=== PATIENT | male | born 2000 | race Caucasian/White ===

== ENCOUNTER 2024-08-07 04:23 | Emergency (ER) | payer BC, SELFPAY ==
[2024-08-07 04:26] VITALS: BP 148/89; PULSE 100; RESP 16; TEMP 36.8; O2SAT 99; BMI 22.7
--- NOTE | 2024-08-07 04:52 | ED.GENADULT ---
HPI - General Adult General Chief complaint: Urogenital Problems, Male Stated complaint: UTI Time Seen by Provider: 08/07/24 04:25 Source: patient Mode of arrival: ambulatory Limitations: no limitations History of Present Illness HPI narrative: 24-year-old male presents the emergency department with feeling of suprapubic pressure. He has a history of chronic urinary retention and has seen urology for this. It sounds as though he has seen 2 separate urologist. He has an upcoming appointment in September with the urologist again. It sounds like it is a follow-up from kidney ultrasounds. Patient denies prior history of urinary tract infections. Denies chance of STD. He does typically have to wear a brief because he has what sounds like overflow incontinence by his report. He frequently will get only the tiniest occurs that he has to urinate and then suddenly have a large urinary movement. Denies constipation or difficulty with stools. No fever. Is feeling a little nauseated today. It sounds very questionable that he has not been told to self cath. I get a very unclear story from him and unfortunately he is a new patient to our system I do not have any access to his outside records. He comes in in the wee hours of the morning as well. States that his past medical history is benign, no major long-term health problems. No prescription medications, no allergies. ROS is notable for the urinary symptoms plus nausea. Denies any rashes, itching on the head of the penis. Otherwise negative times 12 systems. Related Data Home Medications ?Medication ?Instructions ?Recorded ?Confirmed No Known Home Medications 08/07/24 08/07/24 Allergies Allergy/AdvReac Type Severity Reaction Status Date / Time No Known Drug Allergies Allergy Verified 08/07/24 04:31 PFSH PFS Social History Non-prescribed substance use: denies use service: No Exam Const: Vital Signs, click to edit/add: Vital Signs - 24 hr 08/07/24 04:26 Temperature 98.2 F Pulse Rate [Left P ulse Oximeter] 100 Respiratory Rate 16 Blood Pressure [Ri ght Upper Arm] 148/89 H Pulse Oximetry 99 Oxygen Delivery Me thod Room Air Documenting provider has reviewed patient's vital signs: yes Other: Anxious and guarded. Slightly odd behavior but cooperates well with exam with no signs of psychosis. HENMT: Common normals: normocephalic and oropharynx normal Head and scalp: normocephalic Eye: Common normals: conjunctivae normal General eye: normal appearance of both eyes Conjunctiva: conjunctiva(e) normal Neck & C-Spine: Common normals: full ROM and no lymphadenopathy Resp: Common normals: normal respiratory effort, no use of accessory muscles and clear to auscultation bilaterally Effort & inspection: able to speak in complete sentences Auscultation: clear to auscultation bilaterally Cardio: Common normals: regular rate, regular rhythm, S1 normal heart sound, S2 normal heart sound and no murmurs Rate: regular rate Rhythm: regular rhythm Heart sounds: S1 normal and S2 normal GI: Common normals: Normal to inspection, nondistended, normoactive bowel sounds present Other: I believe that is his bladder that I am feeling distended in the suprapubic region. Note that exam was performed after he voided in the bathroom. : Other: He declines a genital exam Extremity: Common normals: normal to inspection and normal capillary refill Psych: Attitude: calm Activity/motor behavior: appropriate eye contact; no psychomotor agitation Mood and affect: anxious Attention/concentration: attention grossly intact Memory/cognition: memory grossly intact Insight: fair Judgement: fair Skin: Common normals: no rashes or lesions noted General skin exam: no rashes or lesions noted Course Course ED Course: 24-year-old male with increased suprapubic pressure in the setting of what sounds like chronic urinary retention and overflow incontinence. Differential diagnosis including acute urinary retention, kidney stone, bladder infection, STD, amongst others. It significant concerns if he is having overflow incontinence for this amount of time that he certainly could develop worsening kidney function, hydronephrosis, further bladder damage, risk of rupture, other complications. I would find it very hard to believe that he has not told to self cath multiple times per day to help relieve his urinary retention. Will start with a urinalysis and obtain a postvoid residual estimated by bladder scan. Reevaluation(s) Time of Reevaluation #1: 05:14 Reevaluation #1: Update: Nursing reports postvoid residual of 277. The certainly above what would be expected but not in a critical value. We would need to straight cath unless he was over 400. I did talk more frankly to patient about what the recommendations have been from his urologist. He is supposed to be straight cathing. He says that he has never been able to do it at home. He often cannot pee on command he does have to sit and wait for it to dribble. He really needs to be straight cathing. I counseled him that the biggest risk to not doing this is that he is putting constant back pressure on his kidneys and this could ultimately lead to kidney failure. Catheters coming a lot of different sizes. There our physical therapists that can help train him. Starting with an even smaller catheter might be easier for him. I can tell that anxiety is a big part of his trigger. There are no signs of infection today and his urinalysis. He does not have acute urinary retention. I am recommending that he call his urologist to touch base on the next steps in getting train to self cath, potentially smaller supplies and next steps in management. Do not wait until September. We will let him know if his gonorrhea and chlamydia tests are unexpectedly positive. There are potentially medications that can be used to help with the bladder spasms but they may worsen his urinary retention. I am not comfortable prescribing these unless is under the supervision of his urologist. He has not been compliant with therapy in the past and I cannot trust that he would report appropriate follow-up if there are signs of complications. This was explained to him. He verbalizes understanding and agreement. He is welcome to use Tylenol, ibuprofen and [id number] Uristat if he finds these helpful. He verbalizes understanding and agreement. Vital Signs Vital signs: Initial Vital Signs Temperature 98.2 F 08/07/24 04:26 Temperature Source Temporal Artery Scan 08/07/24 04:26 Pulse Rate 100 08/07/24 04:26 Pulse Rhythm Regular 08/07/24 04:26 Respiratory Rate 16 08/07/24 04:26 Blood Pressure 148/89 H 08/07/24 04:26 Blood Pressure Mean 108 H 08/07/24 04:26 Blood Pressure Position Sitting 08/07/24 04:26 Pulse Oximetry 99 08/07/24 04:26 Oxygen Delivery Method Room Air 08/07/24 04:26 Vital Signs Temperature 98.2 F 08/07/24 04:26 Pulse Rate 100 08/07/24 04:26 Respiratory Rate 16 08/07/24 04:26 Blood Pressure 148/89 H 08/07/24 04:26 Pulse Oximetry 99 08/07/24 04:26 Oxygen Delivery Method Room Air 08/07/24 04:26 Temperature 98.2 F 08/07/24 04:26 Pulse Rate 100 08/07/24 04:26 Respiratory Rate 16 08/07/24 04:26 Blood Pressure 148/89 H 08/07/24 04:26 Pulse Oximetry 99 08/07/24 04:26 Oxygen Delivery Method Room Air 08/07/24 04:26 Medical Decision Making Lab Data Lab results reviewed: Yes I reviewed the patient's lab results Lab results narrative: Reassuring. No signs of bladder infection. Labs: Lab Results 08/07/24 Range/Units 04:40 Urine Color Yellow (Yellow) Urine Appearance Clear (Clear) Urine pH 6.0 (5.0-8.5) Ur Specific Maurice <= 1.005 (1.000-1.030) Urine Protein Negative (Negative) Urine Glucose (UA) Negative (Negative) Urine Ketones Negative (Negative) Urine Blood Negative (Negative) Urine Nitrite Negative (Negative) Urine Bilirubin Negative (Negative) Urine Urobilinogen 0.2 (0.2-1.0) Ur Leukocyte Esterase Negative (Negative) Urine RBC 0-2 (0-2) Urine WBC 0-2 (0-5) Ur Squamous Epith Cells None (None-Few) Urine Bacteria None (None) Discharge Plan Discharge Clinical Impression: Bladder spasms, Overflow incontinence of urine Patient Disposition: Home w/ Parent or Adult Condition: Stable Additional Instructions: As we discussed, I do think that your bladder spasms are related to your overflow incontinence. I cannot exclude that they may be related to a stomach flu. I know that learning to straight cath is difficult but it really is critical for your bladder and kidney health long-term. Failure to do so put extra pressure on your kidneys and can damage them in the long run. Catheters come in multiple different sizes. As a young man, you would not have as many potential issues getting through the prostate and can probably get by with a smaller catheter. There are also medications that can reduce bladder spasm but they can often worsen urinary retention. Because you have not been particularly compliant with the urologist therapy thus far, I really do not feel comfortable prescribing those unless your urologist can manage them for you. There are no signs of infection on your urinalysis today and there was no sign of dangerous urinary retention. It is critical that you call your urologist and let them know that you have not been able to self cath and that you need more help with this. Please call right away for guidance and potentially a sooner appointment. It is okay to use [id number] Uristat, Tylenol or ibuprofen to help with discomfort. Unfortunately, in the emergency room we can only do a very limited workup and there are no signs of any acute life or organ threatening problem. Further care needs to be directed by your specialist. Come back to the emergency department if you have high fever, persistent vomiting, bloody urine or other worsening symptoms. Activity Level: No Restrictions Discharge Diet: Regular Prescriptions: No Action No Known Home Medications Stand Alone Forms: [employer] Info Instructions
[2024-08-07 04:55] LABS: Appearance Urine Clear (Clear); Bilirubin Urine Negative (Negative); Blood Urine Negative (Negative); Color Urine Yellow (Yellow); Glucose Urine Negative (Negative); Ketones Urine Negative (Negative); Leukocyte Esterase Urine Negative (Negative); Nitrite Urine Negative (Negative); Protein Urine Negative (Negative); Specific Gravity Urine <= 1.005 (1.000-1.030); Urobilinogen Urine 0.2 (0.2-1.0)
--- NOTE | 2024-08-07 05:00 | ED.NURSE ---
bladder scan, 277 ml
[2024-08-07 05:12] LABS: RBC Urine 0-2 (0-2); WBC Urine 0-2 (0-5)
== END 2024-08-07 05:26 | disposition home or self-care (01) ==
PROVIDERS: Emergency Provider Family Medicine; Visit Provider Family Medicine
DX: N32.89 Other specified disorders of bladder (principal); N39.490 Overflow incontinence
CPT/HCPCS: 51798; 81001; 87491; 87591; 99283